=== PATIENT | male | born 1980 | race Caucasian/White ===

== ENCOUNTER 2024-07-02 15:29 | Emergency (ER) | payer OTHER, MEDICAID, SELFPAY ==
[2024-07-02 15:36] VITALS: BP 131/70; PULSE 70; RESP 17; TEMP 36.8; O2SAT 98; BMI 22.9
--- NOTE | 2024-07-02 16:03 | XRR_ITS ---
PROCEDURE INFORMATION: Exam: XR Chest Exam date and time: 07/02/2024 4:12 PM Age: 43 years old Clinical indication: Cough and dyspnea; Patient HX: PT reporting left upper chest pain that started yesterday. PT reports HX dvt/pe and is taking eliquis. Pain is reproducible and worsens with inspiration and palpation. ; Additional info: Dyspnea/cough TECHNIQUE: Imaging protocol: Radiologic exam of the chest. Views: 1 view. COMPARISON: No relevant prior studies available. FINDINGS: Lungs: No focal consolidation. Pleural spaces: No evidence of pneumothorax. No evidence of pleural effusion. Heart/Mediastinum: Cardiomediastinal silhouette is within normal limits. Bones/joints: No evidence of acute osseous abnormality. XR/XR chest 1V portable [id number] IMPRESSION: 1. No acute cardiopulmonary abnormality.
--- NOTE | 2024-07-02 16:04 | ECG_ITS ---
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: : 1980 Requested By: Isael Arauz Order Number: [id number] Reading MD: BEN NICKERSON Measurements Intervals [place] Rate: 71 P: 32 OH: 111 QRS: 91 QRSD: 91 T: 48 QT: 398 QTc: 435 Interpretive Statements SINUS RHYTHM WITH SHORT OH INTERVAL BORDERLINE RIGHT AXIS DEVIATION [QRS AXIS > 90] NONSPECIFIC T-WAVE ABNORMALITY No previous ECG available for comparison Electronically Signed On 07-03-2024 18:51:47 CDT by BEN NICKERSON [id number] f
[2024-07-02] MEDS: aspirin 81 mg Chew Tablet 324 MG PO (16:17)
[2024-07-02 16:20] LABS: Basophils % 0.4 %; Eosinophils # 0.2 10^3/uL (0.0-0.8); Eosinophils % 2.1 %; Hematocrit 41.4 % (37-53); Lymphocytes # 2.8 10^3/uL (0.8-4.8); Lymphocytes % 28.7 %; Mean Corpuscular HGB Conc 33.6 g/dL (30-55); Mean Corpuscular Hemoglobin 34.1 pg (27-33); Mean Corpuscular Volume 101.5 fl (82-101); Monocytes # 0.7 10^3/uL (0.2-0.9); Monocytes % 7.4 %; Neutrophils # 6.04 10^3/uL (1.8-7.7); Neutrophils % 61.1 %; Nucleated Red Blood Cells % 0 %; Platelet Count 148 10^3/cmm (157-399); Red Blood Count 4.08 10^6/uL (3.85-5.65); Red Cell Distribution Width 12.1 % (12.1-15.1); White Blood Count 9.89 10^3/uL (3.29-11.43)
--- NOTE | 2024-07-02 16:38 | W.ED.SOB ---
HPI - SOB/Dyspnea General: Chief Complaint: Shortness of Breath/Dyspnea Stated Complaint: Chest Pain, SOB, Time Seen by Provider: 07/02/24 16:01 History of Present Illness: HPI Narrative: 43-year-old male presents to the emergency room with complaints of chest pain. Pain is worse when he takes a deep breath worse with palpation. He has a history of protein see deficiency him he is on Eliquis which she has been taking regularly. He has a history of pulmonary embolism as a result of this. States the pain has been constant for the last several days to nearly a week. Associated symptoms: Reports chest pain; Deny abdominal pain or fever(s) Related Data Previous Rx's Medication Instructions Recorded tramadol 50 mg tablet 50 mg PO Q8H PRN pain #10 tabs 07/02/24 Allergies Allergy/AdvReac Type Severity Reaction Status Date / Time No Known Allergies Allergy Verified 07/02/24 15:39 Review of Systems Const: Denies: fever(s) or chills Card: Reports: chest pain Resp: Denies: dyspnea GI: Denies: abdominal pain : Denies: dysuria, urinary frequency or urinary urgency Musc: Denies: neck pain or back pain Skin/Breast: Denies: rash PFSH ED PFSH: Medical History (Updated 07/02/24 @ 18:14 by Isael Teran DO) Protein C deficiency Pulmonary embolism Physical Exam Const: COMMON NORMALS: no acute distress GENERAL APPEARANCE: cooperative and comfortable ORIENTATION/CONSCIOUSNESS: Yes awake, Yes oriented to person, Yes oriented to place and Yes oriented to time HENMT: COMMON NORMALS: normocephalic, atraumatic and hearing grossly normal bilaterally HEAD & SCALP: normocephalic and atraumatic Resp: COMMON NORMALS: normal respiratory effort, No retractions, No use of accessory muscles and clear to auscultation bilaterally AUSCULTATION: clear to auscultation bilaterally Cardio: COMMON NORMALS: regular rate, regular rhythm and No murmurs present (Cardio) RATE: regular rate RHYTHM: regular rhythm GI: COMMON NORMALS: Soft to palpation and No hepatosplenomegaly present AUSCULTATION: Yes normoactive bowel sounds PALPATION: Yes Soft to palpation, No Tenderness to palpation present (GI), No Guarding due to palpation present (GI) and Yes No hepatosplenomegaly present Extremity: COMMON NORMALS: normal to inspection, capillary refill normal, no clubbing, cyanosis or edema, no calf tenderness and no pedal edema Neuro: SENSORIUM/ORIENTATION: Yes oriented to person, Yes oriented to place and Yes oriented to time Skin: COMMON NORMALS: no rashes or lesions noted GENERAL SKIN EXAM: no rashes or lesions noted Course Vital Signs: Vital signs: Vital Signs Temperature 98.2 F 07/02/24 15:36 Pulse Rate 70 07/02/24 18:33 Respiratory Rate 20 H 07/02/24 18:00 Blood Pressure 119/72 07/02/24 18:33 Pulse Oximetry 98 07/02/24 18:33 Oxygen Delivery Me thod Room Air 07/02/24 17:00 Clincial Decision Support The following clinical decision support tools were used to aid in care of the patient HEART Score -> History: Slightly Suspicous, EKG: Normal, Age: Less than 45 yrs, Risk Factors: No Risk Factors Known, Troponin: Baseline Trop <16 ng/L. Resulting HEART Score: 0. MDM - SOB/Dyspnea Medical Decision Making Labs imaging and EKG reviewed as found on the chart. Patient has no cardiac risk factors for 0 discomfort much more musculoskeletal in nature discharged home use tramadol as needed follow-up with his primary care if persists Medical Records I reviewed the patient's medical records. Lab Data I reviewed the patient's lab results. 07/02/24 16:12 07/02/24 16:12 Labs/Radiology: Radiology Impressions Chest X-Ray 07/02/24 16:03 IMPRESSION: 1. No acute cardiopulmonary abnormality. Laboratory Results WBC 9.89 10^3/uL (3.29-11.43) 07/02/24 16:12 RBC 4.08 10^6/uL (3.85-5.65) 07/02/24 16:12 Hgb 13.90 g/dL (11.27-16.99) 07/02/24 16:12 Hct 41.4 % (37-53) 07/02/24 16:12 MCV 101.5 fl (82-101) H 07/02/24 16:12 MCH 34.1 pg (27-33) H 07/02/24 16:12 MCHC 33.6 g/dL (30-55) 07/02/24 16:12 RDW 12.1 % (12.1-15.1) 07/02/24 16:12 Plt Count 148 10^3/cmm (157-399) L 07/02/24 16:12 MPV 10.0 fL (7.4-10.4) 07/02/24 16:12 Neut % (Auto) 61.1 % 07/02/24 16:12 Lymph % (Auto) 28.7 % 07/02/24 16:12 [place] % (Auto) 7.4 % 07/02/24 16:12 Eos % (Auto) 2.1 % 07/02/24 16:12 Baso % (Auto) 0.4 % 07/02/24 16:12 Neut # (Auto) 6.04 10^3/uL (1.8-7.7) 07/02/24 16:12 Lymph # (Auto) 2.8 10^3/uL (0.8-4.8) 07/02/24 16:12 [place] # (Auto) 0.7 10^3/uL (0.2-0.9) 07/02/24 16:12 Eos # (Auto) 0.2 10^3/uL (0.0-0.8) 07/02/24 16:12 Baso # (Auto) 0.0 10^3/uL (0.0-0.1) 07/02/24 16:12 Nucleated RBC % (auto) 0 % 07/02/24 16:12 Nucleated RBCs # 0.0 /100WBC 07/02/24 16:12 Sodium 141 mmol/L (136-145) 07/02/24 16:12 Potassium 4.2 mmol/L (3.5-5.1) 07/02/24 16:12 Chloride 107 mmol/L (98-107) 07/02/24 16:12 Carbon Dioxide 21 mmol/L (22-29) L 07/02/24 16:12 Anion Gap 17.2 (5-19) 07/02/24 16:12 BUN 16 mg/dL (6-20) 07/02/24 16:12 Creatinine 0.8 mg/dL (0.7-1.2) 07/02/24 16:12 GFR Calculation 105.0 mL/min (90-130) 07/02/24 16:12 Glucose 97 mg/dL (65-115) 07/02/24 16:12 Calculated Osmolality 293 mOsm/kg (285-295) 07/02/24 16:12 Calcium 8.9 mg/dL (8.5-10.5) 07/02/24 16:12 Total Bilirubin 0.3 mg/dL (0.15-1.2) 07/02/24 16:12 AST 21 U/L (0-40) 07/02/24 16:12 ALT 19 U/L (0-41) 07/02/24 16:12 Alkaline Phosphatase 97 U/L (40-130) 07/02/24 16:12 Troponin T Baseline < 6 ng/L (0-15) 07/02/24 16:12 Troponin T 120 Minute 6.00 ng/L (0-15) 07/02/24 18:12 Delta Troponin T 0.01154 ABS# (0-10) 07/02/24 18:12 Total Protein 6.4 g/dL (6.6-8.7) L 07/02/24 16:12 Albumin 4.2 g/dL (3.5-5.2) 07/02/24 16:12 Globulin 2.2 g/dL (1.3-4.6) 07/02/24 16:12 All radiology interpretation(s) finalized by discharge Discharge Plan Discharge Patient Disposition: Home Clinical Impression: Acute chest wall pain Condition: Stable Prescriptions: New tramadol 50 mg tablet 50 mg PO Q8H PRN (Reason: pain) Qty: 10 0RF Discharge Orders: Discharge ED (Routine); Ordered 07/02/24 Ordered By: Isael Teran Discharge Diet: Usual diet Discharge Activity: Increase activity as tolerated Patient Instructions: Opioid Safety, Pain Management Activity Restrictions/Additional Instructions: Thank you for choosing [facility] for your healthcare needs today. It is very important that you follow up as instructed or that you return to the Emergency Department should you have concerns or if your condition changes or worsens in any way. You are seen today for chest pain chest pain is musculoskeletal in nature reproducible with deep inspiration and palpation. Your EKG and cardiac enzymes were negative. Follow-up with your primary care doctor as needed you can use the pain medication prescribed for you today as needed as well. Coding Level of Care Code ED Industrial Organizational Psychologist for Enrique De La Cruz
[2024-07-02 16:40] VITALS: BP 113/68; PULSE 65; RESP 16; O2SAT 98
[2024-07-02 16:41] LABS: Alanine Aminotransferase 19 U/L (0-41); Albumin Level 4.2 g/dL (3.5-5.2); Alkaline Phosphatase 97 U/L (40-130); Anion Gap 17.2 (5-19); Aspartate Amino Transferase 21 U/L (0-40); Blood Urea Nitrogen 16 mg/dL (6-20); Calcium 8.9 mg/dL (8.5-10.5); Carbon Dioxide 21 mmol/L (22-29); Chloride 107 mmol/L (98-107); Creatinine Clr Calc Pharmacy 121.3833; Globulin 2.2 g/dL (1.3-4.6); Glucose 97 mg/dL (65-115); Osmolality Calculated 293 mOsm/kg (285-295); Potassium 4.2 mmol/L (3.5-5.1); Sodium 141 mmol/L (136-145); Total Bilirubin 0.3 mg/dL (0.15-1.2); Total Protein 6.4 g/dL (6.6-8.7)
[2024-07-02 16:42] LABS: Troponin(5th) Baseline < 6 ng/L (0-15)
[2024-07-02 17:00] VITALS: BP 118/69; PULSE 69; RESP 17; O2SAT 96
[2024-07-02 17:30] VITALS: BP 127/70; PULSE 67; O2SAT 96
[2024-07-02 18:00] VITALS: BP 119/72; PULSE 65; RESP 20; O2SAT 98
[2024-07-02 18:33] VITALS: BP 119/72; PULSE 70; O2SAT 98
[2024-07-02 18:54] LABS: Troponin 5 2HR Delta 0.00001 ABS# (0-10)
== END 2024-07-02 18:23 | disposition home or self-care (01) ==
PROVIDERS: Emergency Provider Family Medicine
DX: R07.89 Other chest pain (principal)
CPT/HCPCS: 36415; 71045; 80053; 84484; 85025; 93005; 99285

== ENCOUNTER 2024-09-14 13:51 | Emergency (ER) | payer MEDICAID, SELFPAY ==
--- NOTE | 2024-09-14 13:53 | USCV_ITS ---
Jose Alberto Rivero Age: 44 Gender: M : 1980 Exam Date: 09/14/2024 14:30 Ordering Phys: Wilner Amaya MD Technologist: CT [place] [facility] [place]: calf pain PROCEDURES: Venous duplex imaging was performed in only the left lower extremity. In addition, the posterior tibial veins were evaluated. FINDINGS: no dvt superficial thrombophlebitis in gsv from mid calf to ankle CONCLUSIONS No DVT LLE Superficial thrombus in GSV below the knee, extending from mid calf to ankle LEFT leg Dr Amaya notified at 1600 Robby Reinoso MD (Electronically Signed) Final Date: 14 September 2024 16:15 S
[2024-09-14 14:10] VITALS: BP 106/71; PULSE 54; RESP 18; TEMP 36.6; O2SAT 97
--- NOTE | 2024-09-14 16:23 | W.ED.EXTPRO ---
HPI - Extremity Problem General: Chief complaint: Extremity Injury, Lower Stated complaint: left leg swollen, pain Time Seen by Provider: 09/14/24 15:59 Source: patient Mode of arrival: ambulatory Limitations: no limitations History of Present Illness: Patient is a 44-year-old male with history of protein C deficiency who presents emergency department with left calf swelling and pain developing over the past few days. History of DVT and PE, states he has been off his Eliquis for 2 weeks because he has been unable to get his prescription refilled, takes 2.5 mg twice a day. No shortness of breath, distal neurovascular symptoms, or other symptoms to report at this time. States he also needs medical clearance for acceptance to sober living rehabilitation facility. Vitals are stable at this time. MD Complaint: extremity pain and extremity swelling Onset (ago): day(s) Pain Consistency: constant Location: left and lower extremity Radiation: distal Exacerbating factors: weight bearing and walking Associated symptoms: Deny chest pain, fever(s) or rash Related Data Previous Rx's Medication Instructions Recorded tramadol 50 mg tablet 50 mg PO Q8H PRN pain #10 tabs 07/02/24 Allergies Allergy/AdvReac Type Severity Reaction Status Date / Time No Known Allergies Allergy Verified 07/02/24 15:39 Review of Systems General: Reports: 10 or more systems reviewed and unremarkable except in HPI and below Const: Denies: fever(s) or chills Card: Denies: chest pain Resp: Denies: dyspnea or productive cough GI: Denies: abdominal pain, nausea, vomiting or diarrhea : Denies: flank pain Musc: Reports: extremity pain (Left calf) and extremity swelling (Left calf); Denies: neck pain, back pain, joint pain, joint swelling, joint redness, joint warmth, limited range of motion or muscle weakness Skin/Breast: Denies: rash Neuro: Denies: headache(s), numbness in extremities or weakness in extremities PFSH ED PFSH: Medical History Protein C deficiency Pulmonary embolism Physical Exam Const: COMMON NORMALS: no acute distress, patient oriented x3, no limitations, healthy appearing, alert and well nourished HENMT: COMMON NORMALS: normocephalic and atraumatic HEAD & SCALP: normocephalic and atraumatic Neck/C-Spine: COMMON NORMALS: full ROM, supple and no meningeal signs Resp: COMMON NORMALS: normal respiratory effort, No use of accessory muscles and clear to auscultation bilaterally AUSCULTATION: clear to auscultation bilaterally Cardio: COMMON NORMALS: regular rate and regular rhythm RATE: regular rate RHYTHM: regular rhythm Extremity: COMMON NORMALS: full ROM, capillary refill normal, no joint enlargement and no clubbing, cyanosis or edema NARRATIVE EXTREMITY EXAM: Tenderness to palpation of left calf, with presence of varicosities and mild edema. Distal pulses 2+ to the left lower extremity. No palpable cord of popliteal space. Negative Homans. Neuro: COMMON NORMALS: patient oriented x3, moves all extremities, no focal motor deficits and no sensory deficits noted SENSORIUM/ORIENTATION: Yes alert MENINGEAL SIGNS: Yes no meningeal signs Skin: COMMON NORMALS: no rashes or lesions noted GENERAL SKIN EXAM: no rashes or lesions noted Course Vital Signs: Vital signs: Vital Signs Temperature 97.9 F 09/14/24 14:10 Pulse Rate 54 L 09/14/24 14:10 Respiratory Rate 18 09/14/24 14:10 Blood Pressure 106/71 09/14/24 14:10 Pulse Oximetry 97 09/14/24 14:10 Oxygen Delivery Me thod Room Air 09/14/24 14:10 MDM - Extremity (Nontraumatic) Medical Decision Making By ultrasound here in the emergency department, patient has presence of confirmed superficial thrombophlebitis of the left great saphenous, no presence however of DVT. With his history of protein C deficiency and history of PE/DVT, he does need to be back on his Eliquis and states that he will see his doctor on Thursday to have this refilled. Discussed conservative therapies of his symptoms related to superficial thrombophlebitis, and all other questions and concerns addressed at this time. He is also medically cleared to go into sober living rehabilitation. All radiology interpretation(s) finalized by discharge Discharge Plan Discharge Patient Disposition: Home Clinical Impression: Superficial thrombophlebitis Condition: Stable Prescriptions: No Action tramadol 50 mg tablet 50 mg PO Q8H PRN (Reason: pain) Qty: 10 0RF Discharge Orders: Discharge ED (Routine); Ordered 09/14/24 Ordered By: Chaz Elmer Garcia Patient Instructions: Superficial Thrombophlebitis (ED) Activity Restrictions/Additional Instructions: Symptoms of superficial thrombophlebitis usually resolve on their own. Apply heat to painful area. Elevate the leg and apply compression. Take Ibuprofen for pain relief. Follow up with your primary care provider, and return with any new or worsening. Patient cleared for rehabilitation. Coding Level of Care Code ED Dental Financial Coordinator for Enrique De La Cruz
[2024-09-14 16:33] VITALS: BP 105/68; PULSE 67; RESP 18; O2SAT 99
== END 2024-09-14 16:30 | disposition home or self-care (01) ==
PROVIDERS: Emergency Provider Physician Assistant
DX: I80.02 Phlebitis and thrombophlebitis of superficial vessels of left lower extremity (principal)
CPT/HCPCS: 93971; 99284